=== PATIENT | female | born 1995 | race African-American/Black ===

== ENCOUNTER 2016-08-28 18:21 | Emergency (ER) | payer OTHER ==
[~2016-08-28] VITALS: Ht 165.1 cm; Wt 68.6 kg
[~2016-08-28 18:21] MED LIST: Colace PO; MOTRIN800 MG PO; Motrin PO; Vitron-C,Hematogen,F PO
[2016-08-28 18:54] LABS: HEMATOCRIT 35.1 % (36.0-46.0); MCH 27.5 PG (29.0-34.0); MCHC 34.2 G/DL (30.0-36.0); MCV 80.3 FL (83-99); MEAN PLAT.VOLUME 10.5 uM^3 (9.5-12.4); PLATELET COUNT 253 K/uL (156-360); RBC DIS.WIDTH-CV 12.3 % (11.8-14.6); RBC DIS.WIDTH-SD 35.6 % (39-53); RED BLOOD COUNT 4.37 M/uL (3.80-5.20); WHITE BLOOD COUNT 8.3 K/uL (4.1-10.2)
[2016-08-28 19:05] LABS: CHLORIDE 108 mEq/L (99-109); POTASSIUM 3.7 mEq/L (3.7-5.4); SODIUM 138 mEq/L (136-147)
[2016-08-28 19:07] LABS: GLUCOSE 89 mg/dL (70-99)
[2016-08-28 19:08] LABS: ANION GAP 10 MEQ/L (2-14)
[2016-08-28 19:09] LABS: TOTAL BILIRUBIN 0.3 mg/dL (0.0-1.0)
[2016-08-28 19:11] LABS: ALKALINE PHOSPHATASE 52 IU/L (3-129); GFR ESTIMATE (CALCULATED) > 59 mL/min/
[2016-08-28 19:12] LABS: UREA NITROGEN (BUN) 8 mg/dL (9-23)
[2016-08-28 19:14] LABS: LIPASE 52 U/L (1.0-51.0)
[2016-08-28 19:40] LABS: QUANTITATIVE HCG 26281.7 MIU/ML
[2016-08-28 23:58] LABS: ADD MIUA? YES; BILIRUBIN NEGATIVE; BLOOD NEGATIVE; COLOR YELLOW ((YELLOW)); GLUCOSE (STRIP) NEGATIVE; KETONES 20; LEUKOCYTES LARGE; NITRITE NEGATIVE; PROTEIN (STRIP) 30; SPECIFIC GRAVITY 1.023 (1.000-1.030)
[2016-08-29 00:04] LABS: BACTERIA RARE /HPF; EPITHELIAL CELLS 2+ /HPF; HYALINE CASTS 0-5 /LPF; MUCUS 4+ /LPF; RED BLOOD CELLS 0-5 /HPF (0-5); UCUL ADDED? YES; WHITE BLOOD CELLS TNTC /HPF (0-5)
[2016-08-29] MEDS ORDERED: KEFLEX500 MG PO (00:24)
[2016-08-29 00:41] VITALS: BP 115/61
== END 2016-08-29 00:43 | disposition home or self-care (01) ==
LOC: EXP 18:21 → EME 18:21 → EXP 08-29 00:43
DX: O23.42 Unspecified infection of urinary tract in pregnancy, second trimester (principal); Z3A.17 17 weeks gestation of pregnancy
CPT/HCPCS: 76805; 80053; 81003; 83690; 84702; 85027; 87086; 99281; 99284

== ENCOUNTER 2017-01-31 08:22 | Inpatient (IN) | payer OTHER ==
[~2017-01-31] VITALS: Ht 167.6 cm; Wt 79.1 kg
[2017-01-31] VITALS (28 sets, daily range): BP systolic 89–142; BP diastolic 50–79
[~2017-01-31 08:22] MED LIST changes: +KEFLEX500 MG PO
[2017-01-31 09:19] LABS: EOSINOPHIL (%) 0.8 % (0-5); EOSINOPHIL COUNT 0.1 K/uL (0-0.3); HEMATOCRIT 30.7 % (36.0-46.0); IMMATURE GRANULOCYTE (%) 0.8 % (0.0-0.7); IMMATURE GRANULOCYTE COUNT 0.1 K/uL; INSTRUMENT ABS NEUTROPHIL CT 5.5 K/uL; MCH 22.1 PG (29.0-34.0); MCHC 30.6 G/DL (30.0-36.0); MCV 72.2 FL (83-99); MEAN PLAT.VOLUME 10.4 uM^3 (9.5-12.4); MONOCYTE (%) 6.5 % (3-12); MONOCYTE COUNT 0.5 K/uL (0-0.8); NEUTROPHIL (%) 66.8 % (45-76); NEUTROPHIL COUNT 5.5 K/uL (1.8-6.4); PLATELET COUNT 270 K/uL (156-360); RBC DIS.WIDTH-CV 14.4 % (11.8-14.6); RBC DIS.WIDTH-SD 37.4 % (39-53); RED BLOOD COUNT 4.25 M/uL (3.80-5.20); WHITE BLOOD COUNT 8.3 K/uL (4.1-10.2)
[2017-01-31 09:24] LABS: ANION GAP 12 MEQ/L (2-14); CHLORIDE 107 MEQ/L (99-109); POTASSIUM 3.6 MEQ/L (3.7-5.4); SAMPLE HEMOLYSIS CHECK 0; SAMPLE ICTERIC CHECK 0; SAMPLE LIPEMIA CHECK 0; SODIUM 138 MEQ/L (136-147); TOTAL BILIRUBIN 0.4 MG/DL (0.0-1.0)
[2017-01-31 09:30] LABS: ALKALINE PHOSPHATASE 142 IU/L (3-129); GFR ESTIMATE (CALCULATED) > 59 mL/min/; GLUCOSE 85 mg/dL (70-99); LACTATE DEHYDROGENASE 173 IU/L (20-246); UREA NITROGEN (BUN) 6 mg/dL (9-23); URIC ACID 4.1 mg/dL (3.1-9.2)
[2017-01-31 12:00] LABS: AMPHETAMINE NEGATIVE (500 ng/mL); BARBITURATES NEGATIVE (200 ng/mL); BENZODIAZEPINES NEGATIVE (150 ng/mL); COCAINE NEGATIVE (150 ng/mL); INTERNAL CONTROLS VALID? YES; METHADONE NEGATIVE (200 ng/mL); METHAMPHETAMINE NEGATIVE (500 ng/mL); OPIATES (MORPHINE) NEGATIVE (100 ng/mL); OXYCODONE NEGATIVE (100 ng/mL); PHENCYCLIDINE NEGATIVE (25 ng/mL); PROPOXYPHENE NEGATIVE (300 ng/mL); THC CANNABINOIDS NEGATIVE (50 ng/mL); TRICYCLIC ANTIDEPRESSANTS NEGATIVE (300 ng/mL)
[2017-01-31 12:09] LABS: UR CREATININE CONCENTRATION 210.6 MG/DL
[2017-02-01 07:13] VITALS: BP 126/78
[2017-02-01 07:59] LABS: EOSINOPHIL (%) 0.7 % (0-5); EOSINOPHIL COUNT 0.1 K/uL (0-0.3); IMMATURE GRANULOCYTE (%) 0.5 % (0.0-0.7); IMMATURE GRANULOCYTE COUNT 0.1 K/uL; LYMPHOCYTE COUNT 2.1 K/uL (1.0-2.8); MCH 22.6 PG (29.0-34.0); MCHC 31.8 G/DL (30.0-36.0); MCV 71.2 FL (83-99); MEAN PLAT.VOLUME 10.6 uM^3 (9.5-12.4); MONOCYTE (%) 7.5 % (3-12); MONOCYTE COUNT 0.8 K/uL (0-0.8); NEUTROPHIL (%) 70.1 % (45-76); PLATELET COUNT 215 K/uL (156-360); RBC DIS.WIDTH-CV 14.5 % (11.8-14.6); RED BLOOD COUNT 3.93 M/uL (3.80-5.20); WHITE BLOOD COUNT 9.9 K/uL (4.1-10.2)
[2017-02-01 15:08] VITALS: BP 123/65
== END 2017-02-01 21:20 | disposition home or self-care (01) | DRG 774 ==
LOC: LDRP-OP 08:22 → 2WEST 08:25 → LDRP-OP 16:38 → 2WEST 18:22 → LDRP-OP 03-06 14:18
PROVIDERS: Advanced Practice Midwife
PROC: 00HU33Z Insertion of Infusion Device into Spinal Canal, Percutaneous Approach (ICD-10-PCS; principal; 2017-01-31)
PROC: 10907ZC Drainage of Amniotic Fluid, Therapeutic from Products of Conception, Via Natural or Artificial Opening (ICD-10-PCS; principal; 2017-01-31)
PROC: 3E0R3BZ Introduction of Anesthetic Agent into Spinal Canal, Percutaneous Approach (ICD-10-PCS; principal; 2017-01-31)
PROC: 10E0XZZ Delivery of Products of Conception, External Approach (ICD-10-PCS; principal; 2017-01-31)
DX: O71.82 Other specified trauma to perineum and vulva (principal); O99.02 Anemia complicating childbirth; D50.9 Iron deficiency anemia, unspecified; O73.1 Retained portions of placenta and membranes, without hemorrhage; O13.4 Gestational [pregnancy-induced] hypertension without significant proteinuria, complicating childbirth; O34.43 Maternal care for other abnormalities of cervix, third trimester; N81.2 Incomplete uterovaginal prolapse; Z3A.39 39 weeks gestation of pregnancy; Z37.0 Single live birth
CPT/HCPCS: 80053; 82570; 83615; 84156; 84550; 85025; C1755; J3010; J7120; Q0169